=== PATIENT | male | born 1965 | race Caucasian/White ===

== ENCOUNTER 2016-06-02 18:19 | Emergency (ER) | payer OTHER ==
[2016-06-02] MEDS ORDERED: ACETAMINOPHEN 500 MG TABLET ONE (18:58)
--- NOTE | 2016-06-02 18:58 | CT ---
Exam: CT head without contrast COMPARISON: None INDICATION: Headache for 4 days. TECHNIQUE: CT examination of the head was obtained without contrast. FINDINGS: There is no acute intracranial hemorrhage. There is no abnormal intra or extra-axial fluid collection. There is no edema, mass effect or midline shift. Ventricles are normal in size. The visualized paranasal sinuses and mastoid air cells are well aerated. IMPRESSION: Negative CT examination of the head. Report was uploaded to the EMR at 1852 hours 06/02/2016.
== END 2016-06-02 20:17 | disposition home or self-care (01) ==
LOC: SUPCPDRO 18:19 → ED 18:19
DX: B02.9 Zoster without complications (principal); H66.91 Otitis media, unspecified, right ear
CPT/HCPCS: 70450; 99283 ×2; A9270